=== PATIENT | male | born 1965 | race Caucasian/White ===

== ENCOUNTER 2020-05-30 23:30 | Observation (INO) | payer BC, OTHER ==
[2020-05-31] MEDS ORDERED: Ondansetron ODT 4 MG TAB PO PRN (00:38)
[2020-05-31] MEDS ORDERED: Dextrose 5% in Water 1,000 ML IV PRN (00:38)
[2020-05-31] MEDS ORDERED: Dextrose 50% Abboject 50 ML SYRINGE SLOW IVP PRN (00:38)
[2020-05-31] MEDS ORDERED: hydrALAZINE 20 MG/ML VIAL SLOW IVP PRN ×2 (00:38)
[2020-05-31] MEDS ORDERED: traMADol HCl 50 MG TAB PO PRN ×2 (00:41)
[2020-05-31] MEDS ORDERED: Morphine 2 MG/ML VIAL SLOW IVP PRN (00:41)
[2020-05-31] MEDS ORDERED: Morphine 4 MG/ML VIAL ONE (00:58)
[2020-05-31] MEDS ORDERED: Adacel (T-DAP) 0.5 ML SYRINGE ONE (00:58)
[2020-05-31 01:32] LABS: #Basophils 0.1 thou/uL (0.0-0.2); #Monocytes 0.6 thou/uL (0.11-0.59); #Neutrophils 8.3 thou/uL (1.40-6.50); %Basophils 0.6 % (0.0-1.0); %Eosinophils 0.5 % (0.0-10.0); %Lymphocytes 9.5 % (21.0-51.0); %Monocytes 5.7 % (0.0-10.0); %Neutrophils 83.7 % (42.0-75.0); Hemoglobin 15.5 g/dL (14.0-18.0); Mean Corpuscular HGB CONC 32.4 g/dL (32.0-36.0); Mean Corpuscular Hemoglobin 30.9 pg (27.0-31.0); Mean Corpuscular Volume 95.5 fL (78.0-98.0); Mean Platelet Volume 6.8 fL (7.4-10.4); Platelet Count 312 thou/uL (130-400); RBC Distribution Width 12.8 % (11.5-14.5); White Blood Cell (WBC) Count 9.9 thou/uL (4.8-10.8)
[2020-05-31 01:50] LABS: Anion Gap 13 mmol/L (10-20); BUN (Urea Nitrogen) 15 mg/dL (8.4-25.7); Calc. Creatinine Clearance 0 mL/min (70-130); Calcium 9.9 mg/dL (7.8-10.44); Carbon Dioxide 25 mmol/L (22-29); Chloride 103 mmol/L (98-107); Estimated GFR-MDRD 77; Glucose 135 mg/dL (70-105); Potassium 3.9 mmol/L (3.5-5.1); Sodium 137 mmol/L (136-145)
[2020-05-31] MEDS: Sodium Chloride 0.9% 1,000 ML IV SCH ×2 (03:31→08:30)
[2020-05-31] MEDS: Morphine 4 MG/ML VIAL SLOW IVP PRN ×2 (03:31→07:01)
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
[2020-05-31] MEDS ORDERED: Acetaminophen 500 MG TAB PO SCH (06:00)
[2020-05-31] MEDS ORDERED: Fentanyl 100 MCG/2 ML VIAL ONE (07:11)
[2020-05-31] MEDS ORDERED: HYDROmorphone 0.5 MG/0.5 ML SYRINGE ONE (07:12)
[2020-05-31 07:29] VITALS: BMI 25.7
--- NOTE | 2020-05-31 07:49 | RAD ---
LEFT HAND 3 VIEWS: HISTORY: Injury. FINDINGS: No osseous abnormality. There is soft tissue disruption seen at the base of the index finger along t he thenar eminence. Soft tissue swelling in this region. IMPRESSION: No acute osseous abnormality. Soft tissue injury as noted. POS: AGW
[2020-05-31] MEDS ORDERED: Neomycin-Polymyxin 1 ML AMP ONE (08:19)
[2020-05-31] MEDS ORDERED: PACU-Morphine 4MG/ML VIAL SLOW IVP PRN (08:43)
[2020-05-31] MEDS ORDERED: Ondansetron HCl/PF 4 MG/2 ML Vial IVP PRN (08:43)
[2020-05-31] MEDS ORDERED: Promethazine HCl 25 MG/ML VIAL SLOW IVP PRN (08:43)
[2020-05-31] MEDS ORDERED: HYDROmorphone 2 MG/ML VIAL SLOW IVP PRN (08:43)
[2020-05-31] MEDS ORDERED: Promethazine HCl 25 MG/ML VIAL IM PRN (08:43)
[2020-05-31] MEDS ORDERED: Senokot S 8.6-50 MG TAB PO SCH (09:00)
[2020-05-31] MEDS ORDERED: Famotidine 20 MG TAB PO SCH (09:00)
[2020-05-31] MEDS ORDERED: Polyethylene Glycol 3350 17 GM Packet PO SCH (09:00)
[2020-05-31] MEDS ORDERED: Gabapentin 300 MG CAP PO SCH (09:00)
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
[2020-05-31 10:11] VITALS: BP 157/79; TEMP 97.8
[2020-05-31] MEDS ORDERED: Dexamethasone 20 MG/5 ML VIAL ONE (10:12)
[2020-05-31] MEDS ORDERED: Ondansetron PF 4 MG/2 ML Vial ONE (10:12)
[2020-05-31] MEDS ORDERED: Lidocaine 1% PF 5 ML VIAL ONE (10:12)
[2020-05-31] MEDS ORDERED: Ketorolac Tromethamine 30 MG/ML VIAL ONE (10:12)
[2020-05-31] MEDS ORDERED: PROPOFOL 200 MG/20 ML VIAL ONE (10:12)
[2020-05-31 12:49] LABS: SARS-CoV-2 MS2 Positive; SARS-CoV-2 N Gene Negative; SARS-CoV-2 S Gene Negative; SARS-CoV-2 by NAA Not Detected (NotDetected); SARS-CoV-2 orf1ab Negative
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
== END 2020-05-31 14:30 | disposition home or self-care (01) ==
LOC: ERS 23:30 → SURG B 05-31 00:40
PROVIDERS: ADMIT Surgery; ATTEND Surgery
PROC: 0JQK0ZZ Repair Left Hand Subcutaneous Tissue and Fascia, Open Approach (ICD-10-PCS; principal; 2020-05-31)
DX: S61.412A Laceration without foreign body of left hand, initial encounter (principal); I10 Essential (primary) hypertension; Z79.899 Other long term (current) drug therapy; W33.02XA Accidental discharge of hunting rifle, initial encounter; Z20.828 Contact with and (suspected) exposure to other viral communicable diseases
CPT/HCPCS: 80048; 85025; 87635; 90471; 90715; 96365; 96375; 96376; G0378; J0690; J1100; J1170; J1885; J2270; J2405; J2704; J3010; U0003